=== PATIENT | male | born 1985 | race Caucasian/White ===

== ENCOUNTER 2023-09-16 06:09 | Day surgery (SDC) | payer BC ==
[2023-09-16] VITALS (10 sets, daily range): BP systolic 109–142; BP diastolic 74–89; PULSE 67–82; RESP 12–16; TEMP 97.8; O2SAT 93–99
[~2023-09-16] VITALS: Ht 180.3 cm; Wt 119.0 kg
[~2023-09-16 06:09] MED LIST: [UNRECOGNIZED DRUG - OTHER]; cefazolin 2gm/D5W 100mL 100 ML IV ONE; famotidine 20mg tablet PO ONE; oxymetazoline 15 ML nasal spray NS ONE; ringers solution, lacted 1,000 ML IV SCH
[2023-09-16] MEDS ORDERED: LIDOcaine 1% w/EPI 1:100,000 inj. MDV 50 ML VIAL ONE (06:47)
[2023-09-16] MEDS ORDERED: cocaine 4% topical solution 4ml bottle ONE (06:47)
[2023-09-16] MEDS ORDERED: oxymetazoline 15 ML nasal spray NS ONE ×2 (06:47→07:00)
[2023-09-16] MEDS ORDERED: mupirocin 2% ointment 22GM ONE (06:47)
[2023-09-16] MEDS ORDERED: epiNEPHrine 1 mg/ml inj ONE (06:47)
[2023-09-16] MEDS ORDERED: lidocaine 1%/epinephrine 1:100,000 inj. 50ml multi-dose vial SQ ONE (07:00)
[2023-09-16] MEDS ORDERED: cocaine 4% topical solution 4ml bottle TP ONE (07:00)
[2023-09-16] MEDS ORDERED: mupirocin 2% cream 15gm TP ONE (07:00)
[2023-09-16] MEDS ORDERED: midazolam 1 mg/ML 2ml injection ONE (07:58)
[2023-09-16] MEDS ORDERED: fentaNYL/PF 50MCG/1 ML 2ML syringe ONE (07:58)
[2023-09-16] MEDS ORDERED: dexamethasone sod phosphate 4mg/ml inj. ONE (07:59)
[2023-09-16] MEDS ORDERED: ondansetron/PF 4mg/2ml inj ONE (07:59)
[2023-09-16] MEDS ORDERED: propofol 10mg/ml 20ml vial IV ONE (08:00)
[2023-09-16] MEDS ORDERED: LIDOcaine 2% (20mg/ml) 5ml vial ONE (08:00)
[2023-09-16] MEDS ORDERED: sevoflurane 250ml liquid IH ONE (08:00)
[2023-09-16] MEDS ORDERED: morphine 4 MG/ML inj SYRINge IV PRN (08:05)
[2023-09-16] MEDS ORDERED: ondansetron/PF 4mg/2ml inj IV PRN (08:05)
[2023-09-16] MEDS ORDERED: labetalol 20mg/4ml (5mg/ml) syringe IV PRN (08:05)
[2023-09-16] MEDS ORDERED: ringers solution, lacted 1,000 ML IV SCH (08:05)
[2023-09-16] MEDS ORDERED: fentaNYL/PF 50MCG/1 ML 2ML syringe IV PRN ×2 (08:05)
[2023-09-16] MEDS ORDERED: morphine 2 MG/ML inj. syringe IV PRN (08:05)
[2023-09-16] MEDS ORDERED: enalaprilat dihydrate 2.5mg/2ml vial IV PRN (08:05)
[2023-09-16] MEDS ORDERED: acetaminophen 1,000mg/100ml IV 100 ML IV ONE (08:17)
[2023-09-16] MEDS ORDERED: labetalol 20mg/4ml (5mg/ml) syringe IV ONE (08:25)
[2023-09-16] MEDS ORDERED: salt irrigation nasal spray 45 ML SPRAY NS PRN (09:40)
== END 2023-09-16 10:39 | disposition home or self-care (01) ==
LOC: PAS 06:09
PROVIDERS: ATTEND Otolaryngology
DX: J34.2 Deviated nasal septum (principal); J34.3 Hypertrophy of nasal turbinates; G47.30 Sleep apnea, unspecified; Z79.899 Other long term (current) drug therapy; Z98.890 Other specified postprocedural states
CPT/HCPCS: 30140; 30520; 82948; 93005; J0131; J0171; J0690; J1100; J2250; J2405; J3010; J3490; J7120; Z7512; A4618; A6402; A6449; A7000; J2704

== ENCOUNTER 2023-12-15 17:25 | Emergency (ER) | payer BC ==
[~2023-12-15] VITALS: Ht 182.9 cm; Wt 109.0 kg
[~2023-12-15 17:25] MED LIST changes: -cefazolin 2gm/D5W 100mL 100 ML IV ONE; -famotidine 20mg tablet PO ONE; -oxymetazoline 15 ML nasal spray NS ONE; -ringers solution, lacted 1,000 ML IV SCH
[2023-12-15 19:27] LABS: EOSINOPHILS % (AUTO) 0.1 % (0-6); MEAN PLATELET VOLUME 9.1 FL (7.4-10.4)
[2023-12-15 19:32] LABS: BASOPHILS % (AUTO) 0.5 % (0-1); HEMATOCRIT 52.3 % (42.0-52.0); HEMOGLOBIN 17.9 g/dl (14.0-17.9); LYMPHOCYTES % (AUTO) 12.7 % (21-51); MEAN CORPUSCULAR HEMOGLOBIN 30.6 PG (27.0-31.0); MEAN CORPUSCULAR HGB CONC 34.2 g/dL (33.0-36.5); MEAN CORPUSCULAR VOLUME 89.5 FL (78-98); MONOCYTES # (AUTO) 1.6 X10'3 (0-0.9); MONOCYTES % (AUTO) 20.1 % (2-12); NEUTROPHILS # (AUTO) 5.5 X10'3 (1.8-7.7); NEUTROPHILS % (AUTO) 66.6 % (42-75); PLATELET COUNT 170 X10'3 (140-440); RED BLOOD COUNT 5.84 X10'6 (4.70-6.10); RED CELL DISTRIBUTION WIDTH 13.3 % (11.5-14.5); WHITE BLOOD COUNT 8.2 X10'3 (4.5-11.0)
[2023-12-15 19:37] LABS: ALBUMIN 3.8 G/DL (3.4-5.0); ANION GAP 15 (8-16); BLOOD UREA NITROGEN 19 MG/DL (7-18); BUN/CREATININE RATIO 14.6 (10.0-20.0); CALCIUM 9.2 MG/DL (8.5-10.1); CHLORIDE 100 MMOL/L (99-107); GLUCOSE 102 MG/DL (70-104); LIPASE 14 U/L (16-77); SODIUM 135 MMOL/L (135-145); TOTAL CARBON DIOXIDE 19.7 MMOL/L (24-32); eCRCL 84 ML/MIN; eGFR 61 ML/MIN
[2023-12-15 20:40] LABS: BILIRUBIN,URINE MODERATE (Neg); CLARITY,URINE CLOUDY (Clear); COLOR,URINE YELLOW (Yellow); GLUCOSE, URINE NEGATIVE (Neg); KETONES,URINE NEGATIVE (Neg); LEUKOCYTE ESTERASE ,URINE NEGATIVE (Neg); NITRITES, URINE NEGATIVE (Neg); OCCULT BLOOD,URINE SMALL (Neg); PROTEIN,URINE 100 mg/dl (Neg); UA COLLECTION TYPE CLN CATCH MIDSTREAM; UROBILINOGEN,URINE 0.2 E.U/dL (0.2-1.0)
[2023-12-15 21:23] LABS: BACTERIA,URINE 1+ /HPF (Neg); SQUAMOUS EPITHELIAL CELL,UR FEW /LPF (FEW); WBC,URINE 0-4 /HPF (0-4)
[2023-12-15 21:24] LABS: AMORPHOUS URATES 1+
[2023-12-15 21:42] LABS: LARGE PLATELETS FEW; PLATELET ESTIMATE NORMAL; TOTAL CELLS COUNTED 100
[2023-12-15 21:43] LABS: TOXIC VACUOLATION FEW
[2023-12-16] MEDS: ondansetron/PF 4mg/2ml inj IV ONE (00:22)
[2023-12-16] MEDS: morphine 4 MG/ML inj SYRINge IV ONE (00:22)
[2023-12-16] MEDS: normal saline 1000ml 1,000 ML IV ONE ×2 (00:22→00:23)
[2023-12-16 01:01] LABS: ALANINE AMINOTRANSFERASE 32 U/L (12-78); ALBUMIN 3.3 G/DL (3.4-5.0); ALBUMIN/GLOBULIN RATIO 0.9 (1.1-1.5); ALKALINE PHOSPHATASE 51 IU/L (46-116); ANION GAP 12 (8-16); ASPARTATE AMINO TRANSFERASE 12 U/L (10-37); BILIRUBIN,TOTAL 0.6 MG/DL (0.1-1.0); BLOOD UREA NITROGEN 20 MG/DL (7-18); BUN/CREATININE RATIO 17.5 (10.0-20.0); CALCIUM 8.6 MG/DL (8.5-10.1); CHLORIDE 100 MMOL/L (99-107); CREATININE 1.14 MG/DL (0.60-1.10); GLUCOSE 123 MG/DL (70-104); LIPASE 15 U/L (16-77); POTASSIUM 3.9 MMOL/L (3.5-5.1); SODIUM 134 MMOL/L (135-145); TOTAL CARBON DIOXIDE 21.8 MMOL/L (24-32); TOTAL PROTEIN 7.1 G/DL (6.4-8.2); eCRCL 95 ML/MIN; eGFR 72 ML/MIN
[2023-12-16] MEDS ORDERED: METR-159 PO (05:30)
[2023-12-16] MEDS ORDERED: HYDR-3965 PO (05:30)
[2023-12-16] MEDS ORDERED: piperacillin/tazo 4.5gm/100ml 100 ML IV SCH (05:30)
[2023-12-16] MEDS ORDERED: LEVO-65 PO (05:30)
[2023-12-16] MEDS: piperacillin/tazo 4.5gm/100ml 100 ML IV SCH (06:02)
[2023-12-16 06:19] VITALS: BP 138/94; PULSE 91; RESP 16; TEMP 98.8; O2SAT 98
== END 2023-12-16 06:20 | disposition home or self-care (01) ==
LOC: ER 17:26
DX: K52.9 Noninfective gastroenteritis and colitis, unspecified (principal); R50.9 Fever, unspecified
CPT/HCPCS: 36415; 74176; 80048; 80053; 81001; 83690; 85007; 85025; 96361; 96365; 96375; 99285; J2270; J2405; J2543; J7030